=== PATIENT | female | born 1945 | race Caucasian/White ===

== ENCOUNTER 2017-06-27 13:32 | Outpatient (CLI) | payer BC | END 2017-06-27 13:33 | disposition home or self-care (01) | LOC: BICMAMMO 13:32 | PROVIDERS: ATTEND Obstetrics & Gynecology | DX: Z12.31 Encounter for screening mammogram for malignant neoplasm of breast (principal); R92.1 Mammographic calcification found on diagnostic imaging of breast | CPT/HCPCS: 77063; 77067 ==

== ENCOUNTER 2021-10-07 10:15 | Outpatient (CLI) | payer BC | END 2021-10-07 10:16 | disposition home or self-care (01) | LOC: SCSMRI 10:15 | PROVIDERS: ATTEND Radiology Radiation Oncology | DX: C79.31 Secondary malignant neoplasm of brain (principal); G93.9 Disorder of brain, unspecified; G93.6 Cerebral edema | CPT/HCPCS: 70553; 82565 ==

== ENCOUNTER 2021-10-07 11:41 | Outpatient (CLI) | payer BC | END 2021-10-07 11:42 | disposition home or self-care (01) | LOC: LABBT 11:41 | PROVIDERS: ATTEND Internal Medicine Hematology & Oncology | DX: C34.31 Malignant neoplasm of lower lobe, right bronchus or lung (principal); C79.31 Secondary malignant neoplasm of brain; Z20.822 Contact with and (suspected) exposure to COVID-19 | CPT/HCPCS: 87811 ==

== ENCOUNTER 2021-10-08 09:30 | Outpatient (CLI) | payer BC, MEDICARE | END 2021-10-08 09:31 | disposition home or self-care (01) | LOC: PET 09:30 | PROVIDERS: ATTEND Internal Medicine Hematology & Oncology | DX: C34.90 Malignant neoplasm of unspecified part of unspecified bronchus or lung (principal); C77.8 Secondary and unspecified malignant neoplasm of lymph nodes of multiple regions | CPT/HCPCS: 78815; A9552 ==

== ENCOUNTER → 2021-10-09 | Day surgery (SDC) | payer BC, MEDICARE ==
[2021-10-09 09:28] LABS: #Lymphocytes 0.5 thou/uL (1.20-3.40); #Monocytes 0.4 thou/uL (0.11-0.59); #Neutrophils 8.1 thou/uL (1.40-6.50); %Basophils 0.2 % (0.0-1.0); %Eosinophils 0.1 % (0.0-10.0); %Lymphocytes 5.2 % (21.0-51.0); %Monocytes 3.9 % (0.0-10.0); %Neutrophils 90.7 % (42.0-75.0); Hemoglobin 12.4 g/dL (12.0-16.0); Mean Corpuscular HGB CONC 31.7 g/dL (32.0-36.0); Mean Corpuscular Hemoglobin 28.1 pg (27.0-31.0); Mean Corpuscular Volume 88.5 fL (78.0-98.0); Mean Platelet Volume 7.1 fL (7.4-10.4); Platelet Count 343 thou/uL (130-400); RBC Distribution Width 12.5 % (11.5-14.5); Red Blood Cell (RBC) Count 4.43 mill/uL (4.20-5.40)
[2021-10-09 09:41] LABS: INR-International Normal Ratio 1.1; PTT 38.8 sec (22.9-36.1); Prothrombin Time 14.2 sec (12.0-14.7)
[2021-10-09 10:07] VITALS: BP 164/78; TEMP 98
== END | disposition home or self-care (01) ==
LOC: CT 09:16
PROVIDERS: ATTEND Internal Medicine Hematology & Oncology
PROC: 0FB23ZX Excision of Left Lobe Liver, Percutaneous Approach, Diagnostic (ICD-10-PCS; principal; 2021-10-09)
DX: C78.7 Secondary malignant neoplasm of liver and intrahepatic bile duct (principal); C34.31 Malignant neoplasm of lower lobe, right bronchus or lung; C79.31 Secondary malignant neoplasm of brain; I10 Essential (primary) hypertension; Z79.2 Long term (current) use of antibiotics; Z79.899 Other long term (current) drug therapy; Z88.0 Allergy status to penicillin
CPT/HCPCS: 36415; 47000; 77012; 85025; 85610; 85730; 88307; 88313; 88333; 88341; 88342

== ENCOUNTER 2021-11-26 04:03 | Inpatient (IN) | payer BC, MEDICARE ==
[2021-11-26] MEDS ORDERED: Cefepime 2 GM VIAL ONE (05:55)
[2021-11-26] MEDS ORDERED: Ondansetron PF 4 MG/2 ML Vial ONE (05:59)
[2021-11-26 06:14] LABS: CKMB 1.7 ng/mL (0-6.6)
[2021-11-26 07:05] LABS: #Eosinphils 0.1 thou/uL (0.0-0.7); #Lymphocytes 0.9 thou/uL (1.20-3.40); #Neutrophils 14.2 thou/uL (1.40-6.50); %Basophils 0.3 % (0.0-1.0); %Eosinophils 0.4 % (0.0-10.0); %Lymphocytes 5.3 % (21.0-51.0); %Monocytes 6.3 % (0.0-10.0); %Neutrophils 87.8 % (42.0-75.0); Hemoglobin 9.3 g/dL (12.0-16.0); Mean Corpuscular HGB CONC 33.5 g/dL (32.0-36.0); Mean Corpuscular Hemoglobin 30.2 pg (27.0-31.0); Mean Corpuscular Volume 90.3 fL (78.0-98.0); Mean Platelet Volume 7.3 fL (7.4-10.4); Platelet Count 295 thou/uL (130-400); RBC Distribution Width 16.4 % (11.5-14.5); Red Blood Cell (RBC) Count 3.08 mill/uL (4.20-5.40); White Blood Cell (WBC) Count 16.1 thou/uL (4.8-10.8)
[2021-11-26 07:09] LABS: ALT (SGPT) 15 U/L (8-55); AST (SGOT) 21 U/L (5-34); Albumin 2.7 g/dL (3.4-4.8); Alkaline Phosphatase 92 U/L (40-110); Anion Gap 14 mmol/L (10-20); BUN (Urea Nitrogen) 14 mg/dL (9.8-20.1); Bilirubin, Total 1.1 mg/dL (0.2-1.2); Calc. Creatinine Clearance 0 mL/min (70-130); Carbon Dioxide 24 mmol/L (23-31); Chloride 90 mmol/L (98-107); Estimated GFR 75; Globulin 2.6 g/dL (2.4-3.5); Glucose 148 mg/dL (83-110); Protein, Total 5.3 g/dL (5.8-8.1); Sodium 124 mmol/L (136-145)
[2021-11-26] MEDS ORDERED: Vancomycin 1 GM/200 ML BAG ONE (07:26)
[2021-11-26] MEDS ORDERED: levETIRAcetam 500 MG TAB PO SCH (08:00)
[2021-11-26] MEDS ORDERED: Iopamidol 370 76% 100 ML VIAL ONE (08:34)
[2021-11-26 08:41] LABS: Troponin I 0.251 ng/mL (< 0.028)
[2021-11-26] MEDS ORDERED: Aluminum & Magnesium Hydroxide 60 ML, Lidocaine 2% Viscous Solution 30 ML, diphenhydrAM... SSW PRN (09:06)
[2021-11-26] MEDS ORDERED: Acetaminophen 325 MG TAB PO PRN (09:36)
[2021-11-26] MEDS ORDERED: Ondansetron ODT 4 MG TAB PO PRN (09:36)
[2021-11-26] MEDS ORDERED: Ondansetron PF 4 MG/2 ML Vial IVP PRN (09:36)
[2021-11-26] MEDS ORDERED: Senokot S 8.6-50 MG TAB PO PRN (09:41)
[2021-11-26] MEDS ORDERED: Calcium Carbonate 500 MG ChewTAB PO PRN (09:41)
[2021-11-26] MEDS ORDERED: Loperamide HCl 2 MG CAP PO PRN (09:41)
[2021-11-26] MEDS ORDERED: Aspirin Chewable 81 MG TAB PO SCH (09:45)
[2021-11-26] MEDS ORDERED: Aspirin Chewable 81 MG TAB ONE (10:20)
[2021-11-26 10:40] LABS: Magnesium 1.7 mg/dL (1.6-2.6); Phosphorus 3.8 mg/dL (2.3-4.7)
[2021-11-26 15:01] LABS: Anion Gap 16 mmol/L (10-20); BUN (Urea Nitrogen) 13 mg/dL (9.8-20.1); Calc. Creatinine Clearance 0 mL/min (70-130); Calcium 8.1 mg/dL (7.8-10.44); Carbon Dioxide 23 mmol/L (23-31); Chloride 91 mmol/L (98-107); Estimated GFR 82; Glucose 88 mg/dL (83-110); Sodium 126 mmol/L (136-145)
[2021-11-26 15:08] LABS: Troponin I 0.157 ng/mL (< 0.028)
[2021-11-26] MEDS: Cefepime 1 GM in Sodium Chloride 0.9% 100 ML IVPB SCH (20:27)
[2021-11-26] MEDS: Donepezil HCl 5 MG TAB PO SCH (20:27)
[2021-11-26] MEDS: Doxycycline 100 MG CAP PO SCH (20:27)
[2021-11-26] MEDS: Melatonin 3 MG TAB PO PRN (23:37)
[2021-11-27 03:27] LABS: Bacteria/HPF None Seen HPF (None Seen); Bilirubin Negative (Negative); Blood, Urine 1+ (Negative); Calcium Oxalate Crystals 1+ HPF (None Seen); Clarity Clear (Clear); Glucose, Urine (Dipstick) 50 mg/dL (Negative); Ketone, Urine 20 mg/dL (Negative); Leukocyte 25 Leu/uL (Negative); Nitrite Negative (Negative); Protein, Urine (Dipstick) 50 mg/dL (Neg-Trace); RBC/HPF 21-50 HPF (0-3); Specific Gravity, Urine 1.038 (1.002-1.036); Squamous Epithelial 0-3 HPF (0-3); Urobilinogen Normal mg/dL (Less than 2)
[2021-11-27 05:25] LABS: #Eosinphils 0.1 thou/uL (0.0-0.7); #Lymphocytes 0.7 thou/uL (1.20-3.40); #Monocytes 0.8 thou/uL (0.11-0.59); #Neutrophils 8.5 thou/uL (1.40-6.50); %Basophils 0.2 % (0.0-1.0); %Eosinophils 0.6 % (0.0-10.0); %Lymphocytes 7.2 % (21.0-51.0); %Monocytes 7.8 % (0.0-10.0); %Neutrophils 84.3 % (42.0-75.0); Hemoglobin 8.6 g/dL (12.0-16.0); Mean Corpuscular HGB CONC 33.1 g/dL (32.0-36.0); Mean Corpuscular Hemoglobin 30.3 pg (27.0-31.0); Mean Corpuscular Volume 91.4 fL (78.0-98.0); Mean Platelet Volume 7.5 fL (7.4-10.4); Platelet Count 231 thou/uL (130-400); RBC Distribution Width 16.6 % (11.5-14.5); Red Blood Cell (RBC) Count 2.85 mill/uL (4.20-5.40); White Blood Cell (WBC) Count 10.1 thou/uL (4.8-10.8)
[2021-11-27] MEDS: Furosemide 20 MG/2 ML VIAL SLOW IVP SCH (05:42)
[2021-11-27 05:45] LABS: ALT (SGPT) 14 U/L (8-55); AST (SGOT) 20 U/L (5-34); Albumin 2.5 g/dL (3.4-4.8); Alkaline Phosphatase 86 U/L (40-110); Anion Gap 12 mmol/L (10-20); BUN (Urea Nitrogen) 14 mg/dL (9.8-20.1); Bilirubin, Total 0.9 mg/dL (0.2-1.2); Calc. Creatinine Clearance 58 mL/min (70-130); Carbon Dioxide 25 mmol/L (23-31); Chloride 94 mmol/L (98-107); Estimated GFR 91; Globulin 2.5 g/dL (2.4-3.5); Glucose 95 mg/dL (83-110); Magnesium 1.7 mg/dL (1.6-2.6); Potassium 3.6 mmol/L (3.5-5.1); Sodium 127 mmol/L (136-145)
[2021-11-27 05:47] LABS: Phosphorus 2.3 mg/dL (2.3-4.7)
[2021-11-27] MEDS ORDERED: Enoxaparin Sodium 30 MG/0.3 ML SYRINGE SC SCH (09:00)
[2021-11-27] MEDS ORDERED: Enoxaparin Sodium 40 MG/0.4 ML SYRINGE SC SCH (09:00)
[2021-11-27] MEDS ORDERED: Osimertinib Mesylate [Tagrisso] 80 MG Tablet DT SCH (09:00)
[2021-11-27] MEDS ORDERED: Furosemide 20 MG/2 ML VIAL SLOW IVP SCH ×2 (09:00→15:30)
[2021-11-27] MEDS ORDERED: OSIMERTINIB MESYLATE 80 MG PO SCH (09:00)
[2021-11-27] MEDS: Cefepime 1 GM in Sodium Chloride 0.9% 100 ML IVPB SCH ×2 (10:03→22:49)
[2021-11-27] MEDS: Doxycycline 100 MG CAP PO SCH ×2 (10:03→22:48)
[2021-11-27] MEDS: Aspirin 81 mg Enteric Coated Tablet PO SCH (10:03)
[2021-11-27] MEDS: Empagliflozin 10 MG TAB PO SCH (10:03)
[2021-11-27] MEDS ORDERED: Potassium Chloride 20 MEQ TAB PO SCH (17:00)
[2021-11-27] MEDS: Donepezil HCl 5 MG TAB PO SCH (22:49)
[2021-11-27] MEDS: Melatonin 3 MG TAB PO PRN (22:49)
[2021-11-28 05:08] LABS: #Basophils 0.1 thou/uL (0.0-0.2); #Eosinphils 0.1 thou/uL (0.0-0.7); #Lymphocytes 0.9 thou/uL (1.20-3.40); #Monocytes 0.9 thou/uL (0.11-0.59); #Neutrophils 7.6 thou/uL (1.40-6.50); %Basophils 0.5 % (0.0-1.0); %Eosinophils 0.9 % (0.0-10.0); %Lymphocytes 9.2 % (21.0-51.0); %Monocytes 9.4 % (0.0-10.0); Hemoglobin 9.4 g/dL (12.0-16.0); Mean Corpuscular HGB CONC 32.4 g/dL (32.0-36.0); Mean Corpuscular Hemoglobin 29.6 pg (27.0-31.0); Mean Corpuscular Volume 91.4 fL (78.0-98.0); Mean Platelet Volume 6.9 fL (7.4-10.4); Platelet Count 236 thou/uL (130-400); RBC Distribution Width 17.5 % (11.5-14.5); Red Blood Cell (RBC) Count 3.16 mill/uL (4.20-5.40); White Blood Cell (WBC) Count 9.5 thou/uL (4.8-10.8)
[2021-11-28] MEDS: Furosemide 20 MG/2 ML VIAL SLOW IVP SCH (05:29)
[2021-11-28 05:33] LABS: ALT (SGPT) 11 U/L (8-55); AST (SGOT) 13 U/L (5-34); Albumin 2.5 g/dL (3.4-4.8); Alkaline Phosphatase 80 U/L (40-110); Anion Gap 12 mmol/L (10-20); BUN (Urea Nitrogen) 10 mg/dL (9.8-20.1); Calc. Creatinine Clearance 62 mL/min (70-130); Carbon Dioxide 26 mmol/L (23-31); Chloride 93 mmol/L (98-107); Estimated GFR 94; Globulin 2.3 g/dL (2.4-3.5); Glucose 96 mg/dL (83-110); Magnesium 1.6 mg/dL (1.6-2.6); Phosphorus 2.1 mg/dL (2.3-4.7); Potassium 3.6 mmol/L (3.5-5.1); Protein, Total 4.8 g/dL (5.8-8.1); Sodium 127 mmol/L (136-145)
[2021-11-28 09:20] VITALS: BMI 19.0
[2021-11-28] MEDS: Enoxaparin Sodium 40 MG/0.4 ML SYRINGE SC SCH (10:32)
[2021-11-28] MEDS: Doxycycline 100 MG CAP PO SCH ×2 (10:32→21:26)
[2021-11-28] MEDS: Aspirin 81 mg Enteric Coated Tablet PO SCH (10:32)
[2021-11-28] MEDS: Empagliflozin 10 MG TAB PO SCH (10:33)
[2021-11-28] MEDS: Carvedilol 3.125 MG TAB PO SCH ×2 (10:33→17:01)
[2021-11-28] MEDS: Cefepime 1 GM in Sodium Chloride 0.9% 100 ML IVPB SCH ×2 (10:33→21:26)
[2021-11-28] MEDS: Melatonin 3 MG TAB PO PRN (21:26)
[2021-11-28] MEDS: Donepezil HCl 5 MG TAB PO SCH (21:26)
[2021-11-29] MEDS: Furosemide 20 MG/2 ML VIAL SLOW IVP SCH (05:26)
[2021-11-29 06:06] LABS: Anion Gap 10 mmol/L (10-20); BUN (Urea Nitrogen) 12 mg/dL (9.8-20.1); Calc. Creatinine Clearance 53 mL/min (70-130); Calcium 7.9 mg/dL (7.8-10.44); Carbon Dioxide 27 mmol/L (23-31); Chloride 95 mmol/L (98-107); Estimated GFR 88; Glucose 104 mg/dL (83-110); Magnesium 1.7 mg/dL (1.6-2.6); Potassium 3.3 mmol/L (3.5-5.1); Sodium 129 mmol/L (136-145)
[2021-11-29] MEDS: Carvedilol 3.125 MG TAB PO SCH ×2 (09:10→16:16)
[2021-11-29] MEDS: Doxycycline 100 MG CAP PO SCH ×2 (09:10→20:44)
[2021-11-29] MEDS: Aspirin 81 mg Enteric Coated Tablet PO SCH (09:10)
[2021-11-29] MEDS: Potassium Chloride 20 MEQ TAB PO SCH ×2 (09:10→16:17)
[2021-11-29] MEDS: Enoxaparin Sodium 40 MG/0.4 ML SYRINGE SC SCH (09:10)
[2021-11-29] MEDS: Cefepime 1 GM in Sodium Chloride 0.9% 100 ML IVPB SCH ×2 (09:11→20:44)
[2021-11-29] MEDS: Empagliflozin 10 MG TAB PO SCH (09:11)
[2021-11-29] MEDS: Melatonin 3 MG TAB PO PRN (20:44)
[2021-11-29] MEDS: Donepezil HCl 5 MG TAB PO SCH (20:44)
[2021-11-30] MEDS ORDERED: Zolpidem Tartrate 5 MG TAB PO SCH (00:30)
[2021-11-30] MEDS: Furosemide 20 MG/2 ML VIAL SLOW IVP SCH (05:33)
[2021-11-30 05:50] LABS: Anion Gap 10 mmol/L (10-20); BUN (Urea Nitrogen) 13 mg/dL (9.8-20.1); Calc. Creatinine Clearance 56 mL/min (70-130); Calcium 8.3 mg/dL (7.8-10.44); Carbon Dioxide 27 mmol/L (23-31); Chloride 97 mmol/L (98-107); Estimated GFR 92; Glucose 99 mg/dL (83-110); Potassium 4.1 mmol/L (3.5-5.1); Sodium 130 mmol/L (136-145)
[2021-11-30] MEDS: Enoxaparin Sodium 40 MG/0.4 ML SYRINGE SC SCH (08:21)
[2021-11-30] MEDS: Cefepime 1 GM in Sodium Chloride 0.9% 100 ML IVPB SCH (08:22)
[2021-11-30] MEDS ORDERED: Regadenoson 0.4 MG/5 ML SYRINGE ONE (08:23)
[2021-11-30] MEDS: Carvedilol 3.125 MG TAB PO SCH (08:45)
[2021-11-30] MEDS: Doxycycline 100 MG CAP PO SCH (11:55)
[2021-11-30] MEDS: Potassium Chloride 20 MEQ TAB PO SCH (11:55)
[2021-11-30] MEDS: Empagliflozin 10 MG TAB PO SCH (11:55)
[2021-11-30] MEDS: Aspirin 81 mg Enteric Coated Tablet PO SCH (11:55)
[2021-11-30 15:52] VITALS: BP 137/72; TEMP 98.1
[2021-11-30] MEDS ORDERED: Carvedilol 25 MG TAB PO SCH (17:00)
== END 2021-11-30 18:20 | disposition home health service (06) | DRG 291 ==
LOC: SUATTDRO 04:03 → ERS 04:03 → ERHOLD 07:33 → NEURO 13:55
PROVIDERS: ADMIT Internal Medicine; ATTEND Internal Medicine
DX: I11.0 Hypertensive heart disease with heart failure (principal); I50.23 Acute on chronic systolic (congestive) heart failure; J96.01 Acute respiratory failure with hypoxia; J18.9 Pneumonia, unspecified organism; E87.2 Acidosis; C79.31 Secondary malignant neoplasm of brain; J91.0 Malignant pleural effusion; I24.8 Other forms of acute ischemic heart disease; E22.2 Syndrome of inappropriate secretion of antidiuretic hormone; Z68.1 Body mass index [BMI] 19.9 or less, adult; I47.2 Ventricular tachycardia; C78.7 Secondary malignant neoplasm of liver and intrahepatic bile duct; C34.01 Malignant neoplasm of right main bronchus; Z20.822 Contact with and (suspected) exposure to COVID-19; E83.42 Hypomagnesemia; F03.90 Unspecified dementia, unspecified severity, without behavioral disturbance, psychotic disturbance, mood disturbance, and anxiety; I44.7 Left bundle-branch block, unspecified; R63.6 Underweight; I42.8 Other cardiomyopathies; F32.A Depression, unspecified; E87.6 Hypokalemia; Z90.710 Acquired absence of both cervix and uterus; Z88.0 Allergy status to penicillin; Z88.1 Allergy status to other antibiotic agents; Z79.899 Other long term (current) drug therapy; Z98.890 Other specified postprocedural states; T45.1X5A Adverse effect of antineoplastic and immunosuppressive drugs, initial encounter; Z79.82 Long term (current) use of aspirin; Z87.81 Personal history of (healed) traumatic fracture; Z80.42 Family history of malignant neoplasm of prostate
CPT/HCPCS: 36415; 71045; 71275; 78452; 80048; 80053; 81001; 82553; 83605; 83735; 83930; 83935; 84100; 84300; 84484; 85025; 87040; 87070; 87205; 93005; 93017; 93306; 93970; 94640; A9500; J0692; J1650; J1940; J2405; J2785; J3370; J3490; J7620; Q0162; Q9967; U0003; U0005

== ENCOUNTER 2021-12-29 08:44 | Outpatient (CLI) | payer BC, MEDICARE | END 2021-12-29 08:45 | disposition home or self-care (01) | LOC: TBSIIMAG 08:44 | PROVIDERS: ATTEND Radiology Radiation Oncology | DX: C79.31 Secondary malignant neoplasm of brain (principal); C80.1 Malignant (primary) neoplasm, unspecified; G93.6 Cerebral edema | CPT/HCPCS: 70553 ==

== ENCOUNTER 2022-01-07 16:50 | Inpatient (IN) | payer BC, MEDICARE ==
[~2022-01-07 16:50] MED LIST: Iopamidol-370 76% 500 ML 1 ML ONE
[2022-01-07 17:47] LABS: #Lymphocytes 0.6 thou/uL (1.20-3.40); #Monocytes 0.9 thou/uL (0.11-0.59); #Neutrophils 10.4 thou/uL (1.40-6.50); %Eosinophils 0.2 % (0.0-10.0); %Lymphocytes 4.9 % (21.0-51.0); %Monocytes 7.3 % (0.0-10.0); %Neutrophils 87.6 % (42.0-75.0); Hemoglobin 10.4 g/dL (12.0-16.0); Mean Corpuscular HGB CONC 31.7 g/dL (32.0-36.0); Mean Corpuscular Hemoglobin 27.8 pg (27.0-31.0); Mean Corpuscular Volume 87.9 fl (78.0-98.0); Mean Platelet Volume 6.8 fL (7.4-10.4); Platelet Count 395 thou/uL (130-400); RBC Distribution Width 15.5 % (11.5-14.5); Red Blood Cell (RBC) Count 3.73 mill/uL (4.20-5.40); White Blood Cell (WBC) Count 11.9 thou/uL (4.8-10.8)
[2022-01-07] MEDS ORDERED: Aspirin Chewable 81 MG TAB ONE (17:54)
[2022-01-07] MEDS ORDERED: Furosemide 40 MG/4 ML VIAL ONE (17:54)
[2022-01-07 18:01] LABS: ALT (SGPT) 12 U/L (8-55); AST (SGOT) 16 U/L (5-34); Albumin 2.8 g/dL (3.4-4.8); Alkaline Phosphatase 113 U/L (40-110); Anion Gap 11 mmol/L (10-20); BUN (Urea Nitrogen) 21 mg/dL (9.8-20.1); Bilirubin, Total 0.4 mg/dL (0.2-1.2); CK (CPK) 53 U/L (29-168); Calc. Creatinine Clearance 0 mL/min (70-130); Calcium 8.8 mg/dL (7.8-10.44); Carbon Dioxide 29 mmol/L (23-31); Chloride 93 mmol/L (98-107); Estimated GFR 61; Globulin 3.2 g/dL (2.4-3.5); Glucose 108 mg/dL (83-110); Lipase 17 U/L (8-78); Potassium 3.1 mmol/L (3.5-5.1); Sodium 130 mmol/L (136-145)
[2022-01-07] MEDS ORDERED: Cefepime 2 GM VIAL ONE (18:21)
[2022-01-07] MEDS ORDERED: Potassium Bicarbonate/Cit Ac 25 MEQ TAB ONE (18:56)
[2022-01-07] MEDS ORDERED: Vancomycin 1 GM/200 ML BAG ONE (19:17)
[2022-01-07] MEDS ORDERED: Midazolam HCl 2 mg/2 ml Vial ONE (19:48)
[2022-01-07 19:57] LABS: Bacteria/HPF None Seen HPF (None Seen); Bilirubin Negative (Negative); Blood, Urine 1+ (Negative); Clarity Clear (Clear); Glucose, Urine (Dipstick) 500 mg/dL (Negative); Ketone, Urine Negative (Negative); Leukocyte 250 Leu/uL (Negative); Nitrite Negative (Negative); Protein, Urine (Dipstick) Negative (Neg-Trace); RBC/HPF 0-3 HPF (0-3); Specific Gravity, Urine 1.015 (1.002-1.036); Squamous Epithelial 0-3 HPF (0-3); Urobilinogen Normal mg/dL (Less than 2)
[2022-01-07] MEDS ORDERED: Ondansetron PF 4 MG/2 ML Vial IVP PRN (21:32)
[2022-01-07] MEDS ORDERED: Lidocaine 1% (PF) 30 ML VIAL ONE (21:38)
[2022-01-07] MEDS ORDERED: Dextrose 5% in Water 1,000 ML IV PRN (21:41)
[2022-01-07] MEDS ORDERED: HumaLOG 300 UNITS/3 ML VIAL SC PRN ×2 (21:41)
[2022-01-07] MEDS ORDERED: Dextrose 50% Abboject 50 ML SYRINGE SLOW IVP PRN (21:41)
[2022-01-07] MEDS ORDERED: Lidocaine 1% PF 10 ML AMP SC SCH (21:45)
[2022-01-07] MEDS ORDERED: Vancomycin 1 GM in Premix Bag 1 BAG IVPB SCH (21:45)
[2022-01-07] MEDS ORDERED: NS 0.9% w/ 40 MEQ KCL 1,000 ML IV SCH (22:00)
[2022-01-07] MEDS ORDERED: guaiFENesin 200 MG TAB PO PRN (22:19)
[2022-01-07] MEDS ORDERED: Benzonatate 100 MG CAP PO PRN (22:19)
[2022-01-07 23:00] VITALS: BMI 17.6
[2022-01-08 00:23] LABS: RBC Count-Automated (BF) 10385 /cu.mm; WBC/Nucleated-Auto (BF) 355 /cu.mm
[2022-01-08 00:25] LABS: Body Fluid Source Thoracentesis Fluid; Clarity Hazy (Clear); Tube # EDTA
[2022-01-08 00:26] LABS: BF Color Yellow
[2022-01-08 00:34] LABS: Pleural Fluid, Protein 2.9 g/dL
[2022-01-08 00:52] LABS: BF Segmented Neutrophils 33 %; Cell Count Non Hematic 10 %; Lymphocytes 57 %
[2022-01-08 04:04] LABS: #Lymphocytes 0.5 thou/uL (1.20-3.40); #Monocytes 0.7 thou/uL (0.11-0.59); #Neutrophils 9.3 thou/uL (1.40-6.50); %Eosinophils 0.1 % (0.0-10.0); %Lymphocytes 4.9 % (21.0-51.0); %Monocytes 6.4 % (0.0-10.0); %Neutrophils 88.6 % (42.0-75.0); Hemoglobin 9.7 g/dL (12.0-16.0); Mean Corpuscular HGB CONC 31.3 g/dL (32.0-36.0); Mean Corpuscular Hemoglobin 27.5 pg (27.0-31.0); Platelet Count 325 thou/uL (130-400); RBC Distribution Width 15.7 % (11.5-14.5); Red Blood Cell (RBC) Count 3.53 mill/uL (4.20-5.40); White Blood Cell (WBC) Count 10.5 thou/uL (4.8-10.8)
[2022-01-08 04:26] LABS: ALT (SGPT) 10 U/L (8-55); AST (SGOT) 15 U/L (5-34); Albumin 2.3 g/dL (3.4-4.8); Alkaline Phosphatase 94 U/L (40-110); Anion Gap 11 mmol/L (10-20); BUN (Urea Nitrogen) 19 mg/dL (9.8-20.1); Bilirubin, Total 0.4 mg/dL (0.2-1.2); Calc. Creatinine Clearance 44 mL/min (70-130); Calcium 8.1 mg/dL (7.8-10.44); Carbon Dioxide 27 mmol/L (23-31); Chloride 96 mmol/L (98-107); Estimated GFR 75; Globulin 2.9 g/dL (2.4-3.5); Glucose 84 mg/dL (83-110); Potassium 3.7 mmol/L (3.5-5.1); Protein, Total 5.2 g/dL (5.8-8.1); Sodium 130 mmol/L (136-145)
[2022-01-08 04:29] LABS: Troponin I 0.013 ng/mL (< 0.028)
[2022-01-08] MEDS: Cefepime 2 GM in Sodium Chloride 0.9% 100 ML IVPB SCH ×2 (05:45→17:10)
[2022-01-08] MEDS: Enoxaparin Sodium 30 MG/0.3 ML SYRINGE SC SCH (09:22)
[2022-01-08] MEDS ORDERED: BIOTENE MOUTH SPRAY 44.3 ML MM PRN (11:01)
[2022-01-08] MEDS: (Osimertinib Mesylate [Tagrisso] 80 MG Tablet) PO SCH (11:11)
[2022-01-08] MEDS: Carvedilol 6.25 MG TAB PO SCH ×2 (16:34→17:10)
[2022-01-08] MEDS ORDERED: Vancomycin HCl 750 MG in Sodium Chloride 0.9% 250 ML 250 ML IVPB SCH (20:00)
[2022-01-08] MEDS ORDERED: Mirtazapine 15 MG TAB PO SCH (21:00)
[2022-01-09] MEDS ORDERED: Acetaminophen 325 MG TAB PO PRN (00:19)
[2022-01-09 04:05] LABS: Hemoglobin 10.9 g/dL (12.0-16.0); Mean Corpuscular HGB CONC 31.4 g/dL (32.0-36.0); Mean Corpuscular Hemoglobin 27.8 pg (27.0-31.0); Mean Corpuscular Volume 88.4 fl (78.0-98.0); Platelet Count 362 thou/uL (130-400); RBC Distribution Width 15.9 % (11.5-14.5); Red Blood Cell (RBC) Count 3.91 mill/uL (4.20-5.40); White Blood Cell (WBC) Count 11.1 thou/uL (4.8-10.8)
[2022-01-09 04:28] LABS: Anion Gap 14 mmol/L (10-20); BUN (Urea Nitrogen) 21 mg/dL (9.8-20.1); Calc. Creatinine Clearance 40 mL/min (70-130); Calcium 8.7 mg/dL (7.8-10.44); Carbon Dioxide 24 mmol/L (23-31); Chloride 97 mmol/L (98-107); Estimated GFR 67; Glucose 93 mg/dL (83-110); Potassium 3.9 mmol/L (3.5-5.1); Sodium 131 mmol/L (136-145)
[2022-01-09] MEDS: Cefepime 2 GM in Sodium Chloride 0.9% 100 ML IVPB SCH (06:28)
[2022-01-09] MEDS ORDERED: FLU VACC QS2022-23(65YR UP)/PF 240 MCG/0.7 ML SYRINGE IM ONE (09:00)
[2022-01-09] MEDS ORDERED: Empagliflozin 10 MG TAB PO SCH (09:00)
[2022-01-09] MEDS: Carvedilol 6.25 MG TAB PO SCH (09:50)
[2022-01-09] MEDS: Enoxaparin Sodium 30 MG/0.3 ML SYRINGE SC SCH (09:51)
[2022-01-09] MEDS: (Osimertinib Mesylate [Tagrisso] 80 MG Tablet) PO SCH (11:57)
[2022-01-09 15:04] VITALS: BP 111/76
[2022-01-09 16:44] VITALS: TEMP 99
== END 2022-01-09 17:29 | disposition home or self-care (01) | DRG 871 ==
LOC: ERS 16:50 → IMCU/EMU 19:46
PROVIDERS: ADMIT Internal Medicine; ATTEND Internal Medicine
PROC: 3E03329 Introduction of Other Anti-infective into Peripheral Vein, Percutaneous Approach (ICD-10-PCS; principal; 2022-01-07)
PROC: 3E033XZ Introduction of Vasopressor into Peripheral Vein, Percutaneous Approach (ICD-10-PCS; 2022-01-07)
PROC: 0W993ZZ Drainage of Right Pleural Cavity, Percutaneous Approach (ICD-10-PCS; 2022-01-07)
DX: A41.9 Sepsis, unspecified organism (principal); E43 Unspecified severe protein-calorie malnutrition; J96.01 Acute respiratory failure with hypoxia; J15.9 Unspecified bacterial pneumonia; I50.23 Acute on chronic systolic (congestive) heart failure; C34.90 Malignant neoplasm of unspecified part of unspecified bronchus or lung; C79.31 Secondary malignant neoplasm of brain; E87.1 Hypo-osmolality and hyponatremia; N39.0 Urinary tract infection, site not specified; R64 Cachexia; J91.0 Malignant pleural effusion; J93.9 Pneumothorax, unspecified; Z68.1 Body mass index [BMI] 19.9 or less, adult; C78.7 Secondary malignant neoplasm of liver and intrahepatic bile duct; Z51.5 Encounter for palliative care; Z20.822 Contact with and (suspected) exposure to COVID-19; I11.0 Hypertensive heart disease with heart failure; F32.A Depression, unspecified; Z90.710 Acquired absence of both cervix and uterus; Z88.0 Allergy status to penicillin; Z88.1 Allergy status to other antibiotic agents; Z79.899 Other long term (current) drug therapy
CPT/HCPCS: 36415; 36416; 71045; 71275; 80048; 80053; 81003; 81015; 82150; 82550; 82945; 83605; 83615; 83690; 83880; 84157; 84443; 84484; 85025; 85027; 85060; 87040; 87070; 87205; 89051; 93005; 94640; 94660; J0692; J1650; J1940; J1956; J2001; J2250; J3370; J3480; J3490; J7050; J7620; Q9967; U0003; U0005

== ENCOUNTER 2022-01-19 09:02 | Outpatient (CLI) | payer BC, MEDICARE | END 2022-01-19 09:03 | disposition home or self-care (01) | LOC: RAD 09:02 | PROVIDERS: ATTEND Internal Medicine Critical Care Medicine | DX: R06.00 Dyspnea, unspecified (principal); R91.8 Other nonspecific abnormal finding of lung field; J90 Pleural effusion, not elsewhere classified; J98.11 Atelectasis; J94.8 Other specified pleural conditions | CPT/HCPCS: 71046 ==